=== PATIENT | female | born 1935 | race Caucasian/White ===

== ENCOUNTER 2016-09-26 21:23 | Emergency (ER) | payer OTHER ==
[2016-09-26 21:35] VITALS: TEMP 98.1; BMI 22.8
--- NOTE | 2016-09-26 22:33 | PDOC ---
History of Present Illness - General History Source: Patient, Old Records Exam Limitations: No Limitations - History of Present Illness Initial Comments: The patient is a 81 year old female with a significant past medical history of arthritis, HTN, and osteoporosis, who presents to the emergency department today for further evaluation of high blood pressure today. The patient states that she was at [employer] today and her systolic blood pressure was found to be 200. The patient also reports chronic left shoulder pain and left eye puffiness. The patient denies fever, chills, and sweats. The patient denies headache or vision changes. The patient denies nausea, vomiting, and diarrhea. The patient denies chest pain, cough, and shortness of breath. <Barron Villavicencio - Last Filed: 09/26/16 23:38> <Nicloe Neil - Last Filed: 09/26/16 23:49> - General Chief Complaint: Blood Pressure Problem Stated Complaint: BLOOD PRESSURE PROBLEM Past History <Barron Villavicencio - Last Filed: 09/26/16 23:38> - Past Medical History Thyroid Disease: Yes (Hytpothyroid) Other medical history: Osteoporosis - Psycho/Social/Smoking Cessation Hx Suicidal Ideation: No Smoking History: Former smoker Have you smoked in the past 12 months: No Information on smoking cessation initiated: No Hx Alcohol Use: No Drug/Substance Use Hx: No Substance Use Type: None <Nicole Neil - Last Filed: 09/26/16 23:49> - Past Medical History Allergies/Adverse Reactions: Allergies Allergy/AdvReac Type Severity Reaction Status Date / Time No Known Allergies Allergy Verified 09/26/16 21:32 Home Medications: Ambulatory Orders Aspirin [ASA -] 81 mg PO DAILY 09/26/16 Donepezil HCl [Aricept -] 10 mg PO DAILY 09/26/16 Simvastatin 20 mg PO DAILY 09/26/16 Review of Systems - Review of Systems Able to Perform ROS?: Yes Comments:: GENERAL/CONSTITUTIONAL: No fever or chills. No weakness. HEAD, EYES, EARS, NOSE AND THROAT: (+) Left eye inflammation. No change in vision. No ear pain or discharge. No sore throat. GASTROINTESTINAL: No nausea, vomiting, diarrhea or constipation. GENITOURINARY: No dysuria, frequency, or change in urination. CARDIOVASCULAR: (+) Elevated blood pressure. No chest pain or shortness of breath. RESPIRATORY: No cough, wheezing, or hemoptysis. MUSCULOSKELETAL: (+) Left shoulder pain. No neck or back pain. SKIN: No rash NEUROLOGIC: No headache, vertigo, loss of consciousness, or change in strength/ sensation. ENDOCRINE: No increased thirst. No abnormal weight change. HEMATOLOGIC/LYMPHATIC: No anemia, easy bleeding, or history of blood clots. ALLERGIC/IMMUNOLOGIC: No hives or skin allergy. <Barron Villavicencio - Last Filed: 09/26/16 23:38> *Physical Exam - Vital Signs Last Vital Signs Temp Pulse Resp BP Pulse Ox 98.1 F 85 19 166/69 100 09/26/16 21:32 09/26/16 21:32 09/26/16 21:32 09/26/16 21:32 09/26/16 21:32 - Physical Exam Comments: GENERAL: Awake, alert, and fully oriented, in no acute distress HEAD: No signs of trauma EYES: (+) PERRLA, EOMI, sclera anicteric, conjunctiva clear. Left subconjunctival rupture. ENT: Auricles normal inspection, nares patent, Moist mucosa NECK: Normal ROM, supple, no lymphadenopathy, JVD, or masses LUNGS: Breath sounds equal, clear to auscultation bilaterally. No wheezes, and no crackles HEART: Regular rate and rhythm, normal S1 and S2, no murmurs, rubs or gallops ABDOMEN: Soft, nontender, normoactive bowel sounds. No guarding, no rebound. No masses EXTREMITIES: Normal range of motion, no edema. No clubbing or cyanosis. No cords, erythema, or tenderness NEUROLOGICAL: Normal speech SKIN: Warm, Dry, normal turgor, no rashes or lesions noted. <Barron Villavicencio - Last Filed: 09/26/16 23:38> - Vital Signs Last Vital Signs Temp Pulse Resp BP Pulse Ox 98.1 F 85 19 166/69 100 09/26/16 21:32 09/26/16 21:32 09/26/16 21:32 09/26/16 21:32 09/26/16 21:32 <Nicole Neil - Last Filed: 09/26/16 23:49> ED Treatment Course - LABORATORY CBC & Chemistry Diagram: 09/26/16 22:53 06/08/17 22:50 - RADIOLOGY Radiograph Interpretation: 09/26/16 23:38 EXAM#: TYPE/EXAM: RESULT: [id number] US/TRANSVAGINAL ULTRASOUND US Vaginal bleeding Pelvis ultrasound, transvesical and transvaginal LMP 09/23/2016 The uterus measures 10.5 x 6 and meter in sagittal and AP dimension. Endometrial stripe measures 7.5 mm in thickness which is within normal limits. There are 2 myometrial masses measuring 5.4 x 4 and 1.4 x 1.4 cm consistent with fibroids. The right ovary measures 4.5 x 2.7 cm with a simple cyst/dominant follicle measuring 2.8 x 1.4 cm. Normal vascular flow Left ovary was not visualized. There is no free fluid in the cul-de-sac. Impression: Fibroid uterus, as described above. Normal thickness of the endometrial stripe. Simple cyst/ dominant follicle in the right ovary measuring 2.8 x 1.4 cm. Left ovary was not visualized. Reported By: Devin Nguyen MD 09/26/16 [id number] <Barron Villavicencio - Last Filed: 09/26/16 23:38> - LABORATORY CBC & Chemistry Diagram: 09/26/16 22:53 09/26/16 22:50 <Nicole Neil - Last Filed: 09/26/16 23:49> Medical Decision Making - Medical Decision Making 09/26/16 22:28 81 yo F with h/o HTN arthritis and chronic left shoulder pain here with concerns for left shoulder pain, and noted to have elevated bp at home. they went to [facility] and rechecked the bp and was told it was over 200 systolic. no n/v no cp no sob. did noted to have a left eye subconjuntival hemorrhage since 2 days ago. no change to vision. no other complaints. on exam awake alert. left eye lateral subconjunctival hemorrhage. EOMI, PERRL. lungs clear bilaterally. heart RRR no mr/g/. abd soft NT. left arm FROM. strenth 08/23. plan xray left shoulder cxr labs ekg possible dc home. as bp improved in ed. tylenol for pain control. <Nicole Neil - Last Filed: 09/26/16 23:49> *DC/Admit/Observation/Transfer - Attestations Scribe Attestion: Documentation prepared by Barron Villavicencio, acting as medical manager for Nicole Neil MD. <Barron Villavicencio - Last Filed: 09/26/16 23:38> - Discharge Dispostion Admit: No <Nicole Neil - Last Filed: 09/26/16 23:49> Diagnosis at time of Disposition: Subconjunctival hemorrhage - Discharge Dispostion Disposition: HOME Condition at time of disposition: Good - Referrals Referrals: Ariel Navarro MD [Staff Physician] - - Patient Instructions Printed Discharge Instructions: DI for High Blood Pressure, DI for Subconjunctival Hemorrhage Additional Instructions: you need to see a regular internal medicine doctor you can call dr. Nicole. she can also see a nuerologist for her forgetfulness. call dr Navarro to schedule an appointment see referral list and phone numbers. return for any problems or concerns. for arthritis pain, she can take tylenol 500 mg every 6 hours as needed for pain.
[2016-09-26] MEDS ORDERED: ACETAMINOPHEN 325 MG TABLET (FP) PO ONE (22:34)
[2016-09-26] MEDS ORDERED: ACETAMINOPHEN 325 MG TABLET (FP) ONE (22:46)
[2016-09-26 22:58] LABS: BASOPHIL 0.4 % (0-2.0); EOSINOPHIL 0.7 % (0-4.5); MEAN CELL VOLUME 84.1 fl (80-96); MEAN PLT VOLUME 8.5 fl (7.5-11.1); NEUTROPHILS 68.7 % (42.8-82.8); PLATELET COUNT 215 K/MM3 (134-434); RDW 14.2 % (11.6-15.6); WHITE BLOOD COUNT 10.1 K/mm3 (4.0-10.0)
[2016-09-26 23:24] LABS: ALBUMIN 3.5 g/dl (3.4-5.0); ANION GAP 9 (8-16); BILIRUBIN,TOTAL 0.2 mg/dL (0.2-1.0); CALCIUM 9.1 mg/dL (8.5-10.1); CO2 27 mmol/L (21-32); COCKROFT - GAULT 57.3665; CREATININE 0.7 mg/dL (0.55-1.02); GLUCOSE,RANDOM 120 mg/dL (74-106); SGOT/AST 17 U/L (15-37); SGPT/ALT 20 U/L (12-78); TOT PROT 6.8 g/dl (6.4-8.2)
[2016-09-26 23:25] LABS: ALK PHOS 72 U/L (45-117)
[2016-09-26 23:56] VITALS: BP 159/56; PULSE 86
--- NOTE | 2016-09-28 15:39 | EKG ---
Test Reason : Blood Pressure : / mmHG Vent. Rate : 077 BPM Atrial Rate : 077 BPM P-R Int : 146 ms QRS Dur : 130 ms QT Int : 406 ms P-R-T Axes : 052 061 033 degrees QTc Int : 459 ms NORMAL SINUS RHYTHM WITH SINUS ARRHYTHMIA RIGHT BUNDLE BRANCH BLOCK ABNORMAL ECG NO PREVIOUS ECGS AVAILABLE Confirmed by ANGELA LENZ, DAPHNE ([id number]) on 09/28/2016 3:38:56 PM Referred By: Confirmed By:DAPHNE MILLER MD
== END 2016-09-26 23:56 | disposition home or self-care (01) ==
LOC: JER 21:23
DX: H11.32 Conjunctival hemorrhage, left eye (principal); I10 Essential (primary) hypertension; G89.29 Other chronic pain; E03.9 Hypothyroidism, unspecified; Z87.891 Personal history of nicotine dependence
CPT/HCPCS: 36415; 71010-TC; 80053; 85025; 93005; 93010; 99281-25

== ENCOUNTER 2017-02-10 16:33 | Emergency (ER) | payer OTHER ==
[2017-02-10 16:40] VITALS: BP 148/77; PULSE 96; TEMP 97.6; BMI 21.9
--- NOTE | 2017-02-10 17:29 | PDOC ---
History of Present Illness - General Chief Complaint: Injury Stated Complaint: HEAD INJURY Time Seen by Provider: 02/10/17 17:14 History Source: Patient, Family Exam Limitations: Dementia - History of Present Illness Initial Comments: 02/10/17 17:30 The patient is a 81 year old female with a significant past medical history of arthritis, HTN, and osteoporosis and alzheimer's disease who present to the ed after a mechanical fall on the head after she tripped on a cart in a supermarket. Fall was witnessed by her son who describes no loss of consciousness, and also saw her falling directly backwards and on her back head and left elbow. Complains of a large edema on the occipital part of the head. No hematoma. No focal deficits or memory loss noted. The patient denies fever, chills, and sweats. The patient denies headache or vision changes. The patient denies nausea, vomiting, and diarrhea. The patient denies chest pain, cough, and shortness of breath. 02/10/17 17:35 02/10/17 17:36 02/10/17 21:46 Past History - Past Medical History Allergies/Adverse Reactions: Allergies Allergy/AdvReac Type Severity Reaction Status Date / Time No Known Allergies Allergy Verified 02/10/17 16:40 Home Medications: Ambulatory Orders Aspirin [ASA -] 81 mg PO DAILY 09/26/16 Donepezil HCl [Aricept -] 10 mg PO DAILY 09/26/16 Simvastatin 20 mg PO DAILY 09/26/16 Levothyroxine [Synthroid -] 75 mcg PO DAILY 02/10/17 Lisinopril [Prinivil] 5 mg PO DAILY 02/10/17 HTN: Yes Hypercholesterolemia: Yes Psychiatric Problems: (Alzheimers dis) Thyroid Disease: Yes (Hytpothyroid) - Suicide/Smoking/Psychosocial Hx Smoking History: Never smoked Have you smoked in the past 12 months: No Information on smoking cessation initiated: No Hx Alcohol Use: No Drug/Substance Use Hx: No Substance Use Type: None Review of Systems - Review of Systems Constitutional: No: Symptoms Reported, Chills, Diaphoresis, Fever HEENTM: Yes: See HPI Respiratory: No: Symptoms reported Cardiac (ROS): No: Symptoms Reported ABD/GI: No: Symptoms Reported : No: Symptoms Reported Musculoskeletal: No: Symptoms Reported Neurological: No: Symptoms reported All Other Systems: Reviewed and Negative *Physical Exam - Vital Signs Last Vital Signs Temp Pulse Resp BP Pulse Ox 97.6 F 96 H 18 148/77 99 02/10/17 16:35 02/10/17 16:35 02/10/17 16:35 02/10/17 16:35 02/10/17 16:35 - Physical Exam General Appearance: Yes: Nourished, Appropriately Dressed. No: Apparent Distress HEENT: positive: EOMI, SAPPHIRE, Normal ENT Inspection, Pharynx Normal Neck: positive: Trachea midline, Normal Thyroid. negative: Tender Respiratory/Chest: positive: Lungs Clear, Normal Breath Sounds. negative: Chest Tender Cardiovascular: positive: Regular Rhythm, Regular Rate, S1, S2 Vascular Pulses: Dorsalis-Pedis (R): 2+, Doralis-Pedis (L): 2+ Gastrointestinal/Abdominal: positive: Normal Bowel Sounds, Flat, Soft. negative : Tender Neurologic: positive: Alert, Normal Mood/Affect, Motor Strength 5/5. negative: Facial Droop ED Treatment Course - LABORATORY CBC & Chemistry Diagram: 02/10/17 18:10 02/10/17 18:10 Medical Decision Making - Medical Decision Making 02/10/17 17:42 81F with pmh of htn, Alzheimer's and osteoporosis presents after mechanical fall no loc. cbc cmp fingerstick pending Cxr pending Head ct pending. All labs and imaging negative for acute processes. 02/10/17 21:23 Patient able to ambulate without assistance. Patient d/c with update to son and copy of head CT for eventual follow up outpatient as recommended by neurologist. 02/10/17 21:28 *DC/Admit/Observation/Transfer Diagnosis at time of Disposition: Head injury due to trauma - Discharge Dispostion Disposition: HOME Condition at time of disposition: Improved Admit: No - Referrals Referrals: Femi Sierra MD [Primary Care Provider] - Ariel Navarro MD [Staff Physician] - - Patient Instructions Printed Discharge Instructions: DI for Closed Head Injury Additional Instructions: Please come back to the ED if you experience any new symptoms like headaches, loss of consciousness, memory loss, lethargy, difficulty walking or seizures. Follow up with your Neurologist or Dr. Navarro for further investigation with MRI. Print Language: NEPALESE
[2017-02-10 18:17] LABS: BASOPHIL 0.5 % (0-2.0); EOSINOPHIL 2.4 % (0-4.5); MCH 27.7 pg (25.7-33.7); MCHC 33.1 g/dl (32.0-36.0); MEAN CELL VOLUME 83.6 fl (80-96); MEAN PLT VOLUME 9.1 fl (7.5-11.1); NEUTROPHILS 65.8 % (42.8-82.8); PLATELET COUNT 210 K/MM3 (134-434); RDW 13.9 % (11.6-15.6); WHITE BLOOD COUNT 8.9 K/mm3 (4.0-10.0)
[2017-02-10 18:20] LABS: URINE APPEARANCE SLCLOUDY; URINE BILIRUBIN NEGATIVE (NEGATIVE); URINE BLOOD NEGATIVE (NEGATIVE); URINE COLOR DKYELLOW; URINE GLUCOSE (UA) NEGATIVE (NEGATIVE); URINE KETONE TRACE (NEGATIVE); URINE NITRITE NEGATIVE (NEGATIVE); URINE PROTEIN NEGATIVE (NEGATIVE); URINE UROBILINOGEN NEGATIVE mg/dL (0.2-1.0)
--- NOTE | 2017-02-10 18:48 | PDOC ---
Attending Attestation - Resident Resident Name: Baldemar Albarado - ED Attending Attestation I have performed the following: I have examined & evaluated the patient, The case was reviewed & discussed with the resident, I agree w/resident's findings & plan, Exceptions are as noted - HPI HPI: 02/10/17 18:43 81 F with h/o HTN, HLD, alzheimer's presenting to ER s/p fall. Pt was putting groceries away with her son when she tripped over the shopping cart, falling backwards and hitting her head on the ground. Pt denies LOC. Son witnessed the fall and said she fell directly backwards. She braced her fall with her left elbow, which is also bothering her. Pt was able to get up and ambulate immediately after falling. Denies [place]/N/V. Endorses mild neck pain. Denies weakness/numbness/tingling in any extremity. Denies CP/SOB. Denies hip or leg pain. - Physicial Exam PE: 02/10/17 18:47 "GENERAL: Awake, alert, and fully oriented, in no acute distress HEAD: hematoma to occiput, no abrasion/laceration EYES: PERRLA, EOMI, sclera anicteric, conjunctiva clear ENT: Auricles normal inspection, hearing grossly normal, nares patent, oropharynx clear without exudates. Moist mucosa NECK: mild paraspinal TTP, no stepoffs, Normal ROM, supple, no lymphadenopathy, JVD, or masses LUNGS: Breath sounds equal, clear to auscultation bilaterally. No wheezes, and no crackles HEART: Regular rate and rhythm, normal S1 and S2, no murmurs, rubs or gallops ABDOMEN: Soft, nontender, normoactive bowel sounds. No guarding, no rebound. No masses EXTREMITIES: L elbow with slight TTP over olecranon, no effusion, no abrasion/ lacerations, RUE wnl, BLE unremarkable NEUROLOGICAL: Cranial nerves II through XII intact. 5/5 strength and sensation in all extremities, Normal speech, normal gait SKIN: Warm, Dry, normal turgor, no rashes or lesions noted. " - Medical Decision Making 02/10/17 18:48 81 F with mechanical fall. Presenting with hematoma to occiput and L elbow pain. - CTH/Cspine - XR L elbow
[2017-02-10] MEDS ORDERED: ACETAMINOPHEN 500 MG TABLET (FP) PO ONE (18:49)
[2017-02-10 18:56] LABS: ALK PHOS 60 U/L (45-117); ANION GAP 7 (8-16); BILIRUBIN,TOTAL 0.6 mg/dL (0.2-1.0); CALCIUM 9.1 mg/dL (8.5-10.1); CO2 28 mmol/L (21-32); CREATININE 0.7 mg/dL (0.55-1.02); GLUCOSE,RANDOM 101 mg/dL (74-106); SGOT/AST 15 U/L (15-37); SGPT/ALT 21 U/L (12-78); TOT PROT 7.8 g/dl (6.4-8.2)
[2017-02-10] MEDS ORDERED: ACETAMINOPHEN 325 MG TABLET (FP) ONE (19:37)
[2017-02-10 22:34] LABS: URINE LEUK ESTERASE TRACE (NEGATIVE)
== END 2017-02-10 22:05 | disposition home or self-care (01) ==
LOC: JER 16:33
DX: S09.8XXA Other specified injuries of head, initial encounter (principal); W18.09XA Striking against other object with subsequent fall, initial encounter; Y93.89 Activity, other specified; Y92.512 Supermarket, store or market as the place of occurrence of the external cause; Y99.8 Other external cause status; I10 Essential (primary) hypertension; E03.9 Hypothyroidism, unspecified; M12.9 Arthropathy, unspecified; G30.9 Alzheimer's disease, unspecified; F02.80 Dementia in other diseases classified elsewhere, unspecified severity, without behavioral disturbance, psychotic disturbance, mood disturbance, and anxiety; M81.8 Other osteoporosis without current pathological fracture
CPT/HCPCS: 36415; 70450-TC; 71020-TC; 72125-TC; 73070-TC-LT; 80053; 81003; 81015; 85025; 99282-25

== ENCOUNTER 2017-11-09 13:30 | Emergency (ER) | payer OTHER ==
[2017-11-09 13:38] VITALS: BMI 23.6
[2017-11-09] MEDS ORDERED: FAMOTIDINE 20 MG/50 ML IVPB 20 MG/50 ML MG IVPB ONE ×2 (14:30→14:40)
[2017-11-09] MEDS ORDERED: MAG HYDROX/AL HYDROX/SIMETH -MYLANTA- ORAL SUSPENSION PO ONE (14:30)
[2017-11-09] MEDS ORDERED: ACETAMINOPHEN 1000 MG/100 ML VIAL (NON FORMULARY) IVPB ONE (14:30)
[2017-11-09] MEDS ORDERED: SODIUM CHLORIDE 1,000 ML IV STA (14:30)
[2017-11-09] MEDS ORDERED: ACETAMINOPHEN INJECTION 100 ML IVPB ONE (14:40)
[2017-11-09] MEDS ORDERED: MAG HYDROX/AL HYDROX/SIMETH 30 ML UNIT-DOSE CUP ONE (14:40)
--- NOTE | 2017-11-09 14:40 | PDOC ---
Attending Attestation - Resident Resident Name: Antonella Limon - ED Attending Attestation I have performed the following: I have examined & evaluated the patient, The case was reviewed & discussed with the resident, I agree w/resident's findings & plan, Exceptions are as noted - HPI HPI: 11/09/17 14:35 82 year old female c/ hx of Alzheimer's dementia, HTN, HLD, brought in by pt's son for abdominal pain. The patient had barbeque yesterday. Was otherwise well. However, two hours prior to arrival, the patient started to develop upper abdominal, intermittent pain. The pt's son reports that the patient typically does not complain. States that the patient requested to go to the hospital. Denies nausea, vomiting, fever, diarrhea, chest pain. - Physicial Exam PE: 11/09/17 14:38 GENERAL: Awake, alert,, in no acute distress HEAD: No signs of trauma EYES: EOMI, sclera anicteric, conjunctiva clear ENT: Auricles normal inspection, hearing grossly normal, nares patent NECK: Normal ROM, supple ABDOMEN: Soft, TTP epigastric, LUQ. negative askew sign. No guarding, no rebound. No masses EXTREMITIES: Normal range of motion, no edema. No clubbing or cyanosis. No cords, erythema, or tenderness NEUROLOGICAL: Cranial nerves II through XII grossly intact. Normal speech, normal gait SKIN: Warm, Dry, normal turgor, no rashes or lesions noted. - Medical Decision Making 11/09/17 14:38 Vital Signs Temp Pulse Resp BP Pulse Ox 98.0 F 89 16 145/72 100 11/09/17 13:36 11/09/17 13:36 11/09/17 13:36 11/09/17 13:36 11/09/17 13:36 The patient is nontoxic appearing. Differential includes gastritis, gastroenteritis, pancreatitis, biliary colic. I agree with residents plan for labs, RUQ ultrasound, UA. GERD medications. If workup is negative and patient feels better from pain medication, I suspect that this is gastritis and patient can be managed as an outpatient. 11/09/17 15:51 Chest xray reviewed. No acute findings. 11/09/17 15:58 CBC, BMP 11/09/17 15:11 11/09/17 15:11 CMP Sodium 142 mmol/L (136-145) 11/09/17 15:11 Potassium 4.3 mmol/L (3.5-5.1) 11/09/17 15:11 Chloride 107 mmol/L (98-107) 11/09/17 15:11 Carbon Dioxide 28 mmol/L (21-32) 11/09/17 15:11 Anion Gap 7 (8-16) L 11/09/17 15:11 BUN 15 mg/dL (7-18) 11/09/17 15:11 Creatinine 0.8 mg/dL (0.55-1.02) 11/09/17 15:11 Creat Clearance w eGFR > 60 (>60) 11/09/17 15:11 Random Glucose 73 mg/dL (74-106) L 11/09/17 15:11 Lactic Acid 1.2 mmol/L (0.0-2.0) 11/09/17 15:11 Calcium 9.1 mg/dL (8.5-10.1) 11/09/17 15:11 Total Bilirubin 0.6 mg/dL (0.2-1.0) 11/09/17 15:11 AST 19 U/L (15-37) 11/09/17 15:11 ALT 25 U/L (12-78) 11/09/17 15:11 Alkaline Phosphatase 76 U/L (45-117) 11/09/17 15:11 Troponin I < 0.02 ng/ml (0.00-0.05) 11/09/17 15:11 Total Protein 7.3 g/dl (6.4-8.2) 11/09/17 15:11 Albumin 3.7 g/dl (3.4-5.0) 11/09/17 15:11 Lipase 220 U/L (73-393) 11/09/17 15:11 Urine Test Results Urine Color Yellow 11/09/17 14:45 Urine Appearance Clear 11/09/17 14:45 Urine pH 5.0 (5.0-8.0) 11/09/17 14:45 Ur Specific [place] 1.020 (1.001-1.035) 11/09/17 14:45 Urine Protein Negative (NEGATIVE) 11/09/17 14:45 Urine Glucose (UA) Negative (NEGATIVE) 11/09/17 14:45 Urine Ketones Negative (NEGATIVE) 11/09/17 14:45 Urine Blood Negative (NEGATIVE) 11/09/17 14:45 Urine Nitrite Negative (NEGATIVE) 11/09/17 14:45 Urine Bilirubin Negative (<2.0 mg/dL) 11/09/17 14:45 Ur Leukocyte Esterase Negative (NEGATIVE) D 11/09/17 14:45 Labs reviewed. No acute findings. Ultrasound pending. If the ultrasound is equivocal and the patient continues to have pain, I would recommend that the patient receive a CT scan of the abdomen and pelvis. Heart Score/ECG Review #1 ECG reviewed & interpreted by me at: 15:55 11/09/17 15:59 NSR 69, RBBB, no std/nirali, QTC 447 msec
--- NOTE | 2017-11-09 14:52 | PDOC ---
History of Present Illness - General Chief Complaint: Pain Stated Complaint: ABD PAIN Time Seen by Provider: 11/09/17 14:02 History Source: Patient, Family (Son) - History of Present Illness Initial Comments: 82yo F with PMH of Alzheimers, HTN, HLD complaining of abdominal pain x 2 hours. Denies nausea, vomiting, constipation, or diarrhea. Patient recently finished a ten-day course of antibiotics for a vaginal infection. Last bowel movement was earlier today. Patient reports a normal appetite. No history of GI bleed. Denies fever, chills, chest pain, or shortness of breath. History of C- section. 11/09/17 14:50 Past History - Past Medical History Allergies/Adverse Reactions: Allergies Allergy/AdvReac Type Severity Reaction Status Date / Time No Known Allergies Allergy Verified 11/09/17 13:39 Home Medications: Ambulatory Orders Aspirin [ASA -] 81 mg PO DAILY 09/26/16 Donepezil HCl [Aricept -] 10 mg PO DAILY 09/26/16 Simvastatin 20 mg PO DAILY 09/26/16 Levothyroxine [Synthroid -] 75 mcg PO DAILY 02/10/17 Lisinopril [Prinivil] 5 mg PO DAILY 02/10/17 Pantoprazole Sodium [Protonix] 40 mg PO DAILY #10 tablet. 11/09/17 COPD: No HTN: Yes Hypercholesterolemia: Yes Psychiatric Problems: (Alzheimers dis) Thyroid Disease: Yes (Hytpothyroid) - Suicide/Smoking/Psychosocial Hx Smoking History: Never smoked Have you smoked in the past 12 months: No Information on smoking cessation initiated: No Hx Alcohol Use: No Drug/Substance Use Hx: No Substance Use Type: None Review of Systems - Review of Systems Comments:: Constitutional: no fever, no chills HEENT: no throat pain, no dysphagia Cardiovascular: no chest pain, no palpitations Respiratory: no cough, no shortness of breath Gastrointestinal: +abdominal pain, no nausea, no vomiting, no diarrhea, no constipation Genitourinary: no dysuria, no frequency Musculoskeletal: no myalgia, no arthralgia Skin: no rash, no itching Neurologic: no headache, no dizziness *Physical Exam - Vital Signs Last Vital Signs Temp Pulse Resp BP Pulse Ox 98.0 F 89 16 145/72 100 11/09/17 13:36 11/09/17 13:36 11/09/17 13:36 11/09/17 13:36 11/09/17 13:36 - Physical Exam Comments: General: Awake, alert, and fully oriented, in no acute distress Head: no signs of trauma Eyes: EOMI, sclera anicteric ENT: moist mucus membranes, Neck: Normal ROM, supple, no lymphadenopathy Lungs: Lungs clear, Normal breath sounds Cardio: Regular rhythm, S1 and S2 present, no murmurs, rubs, or gallops Abdomen: +tender to palpation in epigastric area, soft, normal bowel sounds. No guarding, no rebound, no masses Extremities: Normal range of motion, No clubbing or cyanosis SKIN: Warm, Dry, normal turgor, no rashes or lesions noted Neurologic: Cranial nerves II through XII grossly intact. Normal speech ED Treatment Course - LABORATORY CBC & Chemistry Diagram: 11/09/17 15:11 11/09/17 15:11 - RADIOLOGY Radiology Studies Ordered: Category Date Time Status CXRPORT [CHEST X-RAY PORTABLE*] [RAD] Stat Radiology 11/09/17 14:26 Ordered Medical Decision Making - Medical Decision Making 82yo F with PMH of Alzheimers, HTN, HLD complaining of abdominal pain x 2 hours. Patient denies diarrhea. I do not think this is a gastroenteritis, colitis, or diverticulitis. Patient is not vomiting and is afebrile. Will get screening labs for hepatitis, cholecystitis, or pancreatitis. She does not appear obstructed as she endorses normal BMs and no vomiting. Patient's abdomen is not peritoneal. She denies hematuria or dysuria. Will check an UA. Vital Signs Temp Pulse Resp BP Pulse Ox 98.0 F 89 16 145/72 100 11/09/17 13:36 11/09/17 13:36 11/09/17 13:36 11/09/17 13:36 11/09/17 13:36 11/09/17 15:29 WBC 11.2, Tpn negative, UA negative. Lactate negative. Awaiting US report. 11/09/17 16:[address] Martínez- "IMPRESSION: 1. Cholelithiasis 2. Nonvisualization of the tail of the pancreas due to overlying bowel gas. Otherwise unremarkable right upper quadrant abdominal sonogram." Patient reporting no abdominal pain, no nausea or vomiting. Requesting something to eat. Glucose noted to be 73, patient given juan j crackers which she consumed. Will discharge home with protonix. Patient and son amenable to plan. Laboratory Tests 11/09/17 11/09/17 11/09/17 14:45 15:11 15:11 WBC 11.2 H RBC 4.29 Hgb 12.0 Hct 36.3 MCV 84.7 MCH 28.0 MCHC 33.1 RDW 14.1 Plt Count 209 MPV 9.4 Absolute Neuts (auto) 7.7 Neutrophils % 68.6 Lymphocytes % 21.1 Monocytes % 8.6 Eosinophils % 1.0 Basophils % 0.7 Nucleated RBC % 0 Sodium 142 Potassium 4.3 Chloride 107 Carbon Dioxide 28 Anion Gap 7 L BUN 15 Creatinine 0.8 Creat Clearance w eGFR > 60 Random Glucose 73 L Lactic Acid Calcium 9.1 Total Bilirubin 0.6 AST 19 ALT 25 Alkaline Phosphatase 76 Troponin I < 0.02 Total Protein 7.3 Albumin 3.7 Lipase 220 Urine Color Yellow Urine Appearance Clear Urine pH 5.0 Ur Specific [place] 1.020 Urine Protein Negative Urine Glucose (UA) Negative Urine Ketones Negative Urine Blood Negative Urine Nitrite Negative Urine Bilirubin Negative Urine Urobilinogen 0.2 Ur Leukocyte Esterase Negative D 11/09/17 15:11 WBC RBC Hgb Hct MCV MCH MCHC RDW Plt Count MPV Absolute Neuts (auto) Neutrophils % Lymphocytes % Monocytes % Eosinophils % Basophils % Nucleated RBC % Sodium Potassium Chloride Carbon Dioxide Anion Gap BUN Creatinine Creat Clearance w eGFR Random Glucose Lactic Acid 1.2 Calcium Total Bilirubin AST ALT Alkaline Phosphatase Troponin I Total Protein Albumin Lipase Urine Color Urine Appearance Urine pH Ur Specific [place] Urine Protein Urine Glucose (UA) Urine Ketones Urine Blood Urine Nitrite Urine Bilirubin Urine Urobilinogen Ur Leukocyte Esterase 11/09/17 17:36 *DC/Admit/Observation/Transfer Diagnosis at time of Disposition: Abdominal pain Qualifiers: Abdominal location: epigastric Qualified Code(s): R10.13 - Epigastric pain - Discharge Dispostion Disposition: HOME Condition at time of disposition: Improved - Prescriptions Prescriptions: Pantoprazole Sodium [Protonix] 40 mg PO DAILY #10 tablet.dr - Referrals Referrals: Femi Sierra MD [Primary Care Provider] - - Patient Instructions Additional Instructions: You were seen in the Emergency Department today due abdominal pain. Blood tests and Ultrasound did not find a serious reason for your abdominal pain. INSTRUCTIONS (what you need to do): Follow up with your primary care doctor, Dr. Sierra, in the next 2-3 days. At this time, we have not found a serious cause of your abdominal pain. It is important that you carefully watch for changes in the abdominal pain that might suggest a serious condition. See your doctor or return to the emergency department immediately if your condition gets worse. Call your doctor or return to the emergency department if you are feeling worse or if: -You are unable to walk easily or are walking in a bent-over position. -Stepping or jumping results in severe pain. -The abdomen is hard and painful when you press on it. -There is severe abdominal pain when coughing. -Worsening vomiting. Vomiting is bloody or green or looks like chocolate or coffee. -The belly looks very full or big. -You are experiencing severe pain every 3 to 20 minutes. -Stool (poop) is bloody or black. -You are drowsy, weak, fussy, or pale - Post Discharge Activity
[2017-11-09 15:41] LABS: ALBUMIN 3.7 g/dl (3.4-5.0); ANION GAP 7 (8-16); BILIRUBIN,TOTAL 0.6 mg/dL (0.2-1.0); BLOOD UREA NITROGEN 15 mg/dL (7-18); CALCIUM 9.1 mg/dL (8.5-10.1); CHLORIDE 107 mmol/L (98-107); CO2 28 mmol/L (21-32); CREATININE 0.8 mg/dL (0.55-1.02); GLUCOSE,RANDOM 73 mg/dL (74-106); POTASSIUM 4.3 mmol/L (3.5-5.1); SGOT/AST 19 U/L (15-37); SGPT/ALT 25 U/L (12-78); SODIUM 142 mmol/L (136-145); TOT PROT 7.3 g/dl (6.4-8.2)
[2017-11-09 15:44] LABS: ALK PHOS 76 U/L (45-117); LIPASE 220 U/L (73-393)
[2017-11-09 15:45] LABS: BASO % 0.7 % (0-2.0); HEMATOCRIT 36.3 % (32.4-45.2); LYMPH % 21.1 % (8-40); MCHC 33.1 g/dl (32.0-36.0); MEAN CELL VOLUME 84.7 fl (80-96); MEAN PLT VOLUME 9.4 fl (7.5-11.1); MONO % 8.6 % (3.8-10.2); NEUT % 68.6 % (42.8-82.8); PLATELET COUNT 209 K/MM3 (134-434); RBC 4.29 M/mm3 (3.60-5.2); RDW 14.1 % (11.6-15.6); WHITE BLOOD COUNT 11.2 K/mm3 (4.0-10.0)
[2017-11-09 15:50] LABS: URINE APPEARANCE CLEAR; URINE BILIRUBIN NEGATIVE (<2.0 mg/dL); URINE COLOR YELLOW; URINE GLUCOSE (UA) NEGATIVE (NEGATIVE); URINE KETONE NEGATIVE (NEGATIVE); URINE PROTEIN NEGATIVE (NEGATIVE)
[2017-11-09 15:51] LABS: URINE LEUK ESTERASE NEGATIVE (NEGATIVE); URINE NITRITE NEGATIVE (NEGATIVE); URINE UROBILINOGEN 0.2 mg/dL (0.2-1.0)
--- NOTE | 2017-11-09 17:44 | PDOC ---
*Physical Exam - Vital Signs Last Vital Signs Temp Pulse Resp BP Pulse Ox 98.0 F 89 16 145/72 100 11/09/17 13:36 11/09/17 13:36 11/09/17 13:36 11/09/17 13:36 11/09/17 13:36 ED Treatment Course - LABORATORY CBC & Chemistry Diagram: 11/09/17 15:11 11/09/17 15:11 - ADDITIONAL ORDERS Additional order review: Laboratory Results 11/09/17 11/09/17 11/09/17 15:11 15:11 14:45 Sodium 142 Potassium 4.3 Chloride 107 Carbon Dioxide 28 Anion Gap 7 L BUN 15 Creatinine 0.8 Creat Clearance w eGFR > 60 Random Glucose 73 L Lactic Acid 1.2 Calcium 9.1 Total Bilirubin 0.6 AST 19 ALT 25 Alkaline Phosphatase 76 Troponin I < 0.02 Total Protein 7.3 Albumin 3.7 Lipase 220 Urine Color Yellow Urine Appearance Clear Urine pH 5.0 Ur Specific [place] 1.020 Urine Protein Negative Urine Glucose (UA) Negative Urine Ketones Negative Urine Blood Negative Urine Nitrite Negative Urine Bilirubin Negative Urine Urobilinogen 0.2 Ur Leukocyte Esterase Negative D 11/09/17 15:11 RBC 4.29 MCV 84.7 MCHC 33.1 RDW 14.1 MPV 9.4 Neutrophils % 68.6 Lymphocytes % 21.1 Monocytes % 8.6 Eosinophils % 1.0 Basophils % 0.7 - Medications Given in the ED: ED Medications Discontinued Medications Generic Name Dose Route Start Last Admin Trade Name Joaoq PRN Reason Stop Dose Admin Acetaminophen 1,000 mg 11/09/17 14:30 11/09/17 15:00 Ofirmev Injection - IVPB 11/09/17 14:31 1,000 mg ONCE ONE Administration Al Hydroxide/Mg Hydroxide 30 ml 11/09/17 14:30 11/09/17 14:45 Mylanta Suspension - PO 11/09/17 14:31 30 ml ONCE ONE Administration Famotidine/Sodium Chloride 20 mg in 50 mls @ 100 mls/hr 11/09/17 14:30 15:00 Pepcid 20 Mg Premixed Ivpb - IVPB 11/09/17 14:59 100 mls/hr ONCE ONE Administration Sodium Chloride 1,000 mls @ 1,000 mls/hr 11/09/17 14:30 11/09/17 15:00 Normal Saline - IV 11/09/17 15:29 1,000 mls/hr ASDIR STA Administration Medical Decision Making - Medical Decision Making 11/09/17 17:43 Patient is requesting something to drink and ate and she was given juan j crackers and water. She states that her pain has resolved Ultrasound showed multiple mobile gallstones, but no inflammation, sludge apparently cholecystic fluid. Impression gastritis. Plan follow-up with Dr. 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
[2017-11-09 18:11] VITALS: BP 140/63; PULSE 71; TEMP 97.7
--- NOTE | 2017-11-10 11:31 | EKG ---
Test Reason : Blood Pressure : / mmHG Vent. Rate : 069 BPM Atrial Rate : 069 BPM P-R Int : 152 ms QRS Dur : 130 ms QT Int : 418 ms P-R-T Axes : 055 046 028 degrees QTc Int : 447 ms NORMAL SINUS RHYTHM RIGHT BUNDLE BRANCH BLOCK ABNORMAL ECG WHEN COMPARED WITH ECG OF 26-SEP-2016 22:17, NO SIGNIFICANT CHANGE WAS FOUND Confirmed by LINDEN HUA MD ([id number]) on 11/10/2017 11:31:13 AM Referred By: Confirmed By:LINDEN HUA MD
== END 2017-11-09 18:11 | disposition home or self-care (01) ==
LOC: JER 13:30
PROC: 3E033GC Introduction of Other Therapeutic Substance into Peripheral Vein, Percutaneous Approach (ICD-10-PCS; principal; 2017-11-09)
PROC: 3E033NZ Introduction of Analgesics, Hypnotics, Sedatives into Peripheral Vein, Percutaneous Approach (ICD-10-PCS; 2017-11-09)
DX: K80.20 Calculus of gallbladder without cholecystitis without obstruction (principal); R10.10 Upper abdominal pain, unspecified; I10 Essential (primary) hypertension; E78.00 Pure hypercholesterolemia, unspecified; E78.5 Hyperlipidemia, unspecified; E03.9 Hypothyroidism, unspecified; G30.9 Alzheimer's disease, unspecified; F02.80 Dementia in other diseases classified elsewhere, unspecified severity, without behavioral disturbance, psychotic disturbance, mood disturbance, and anxiety
CPT/HCPCS: 36415; 71045-TC-FY; 76705-TC; 80053; 81003; 83605; 83690; 84484; 85025; 87040; 87086; 93005; 93010; 96365; 96375; 99283-25; J0131; J7030

== ENCOUNTER 2018-06-13 13:14 | Observation (INO) | payer OTHER ==
[2018-06-13] MEDS ORDERED: ASPIRIN 81 MG CHEWABLE TABLETS PO ONE (13:48)
--- NOTE | 2018-06-13 14:16 | PDOC ---
History of Present Illness - General Chief Complaint: Chest Pain Stated Complaint: CHEST PAIN Time Seen by Provider: 06/13/18 13:35 History Source: Patient, Family Exam Limitations: Dementia - History of Present Illness Initial Comments: 06/13/18 14:11 Patient is an 83F with history of dementia, htn, hld here today complaining of chest pain. Her son reports that she had an episode of sudden onset chest pain at 12:30 today with associated leg weakness. Patient states that she has no pain or leg weakness at this time. History is limited by patient's memory loss. Son states that she did not complain of shortness of breath, fever, abdominal pain, headache. Son denies vomiting, focal weakness. No history of cardiac workups in past. 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 Patient's son reports this is her baseline mental status. Past History - Past Medical History Allergies/Adverse Reactions: Allergies Allergy/AdvReac Type Severity Reaction Status Date / Time No Known Allergies Allergy Verified 06/13/18 13:21 Home Medications: Ambulatory Orders Aspirin [ASA -] 81 mg PO DAILY 09/26/16 Donepezil HCl [Aricept -] 10 mg PO DAILY 09/26/16 Simvastatin 20 mg PO DAILY 09/26/16 Levothyroxine [Synthroid -] 75 mcg PO DAILY 02/10/17 Lisinopril [Prinivil] 5 mg PO DAILY 02/10/17 Pantoprazole Sodium [Protonix] 40 mg PO DAILY #10 tablet. 11/09/17 COPD: No DVT: No Dementia: Yes HTN: Yes Hypercholesterolemia: Yes Psychiatric Problems: (Alzheimers dis) Thyroid Disease: Yes (Hytpothyroid) - Suicide/Smoking/Psychosocial Hx Smoking History: Never smoked Have you smoked in the past 12 months: No Information on smoking cessation initiated: No Hx Alcohol Use: No Drug/Substance Use Hx: No Substance Use Type: None Review of Systems - Review of Systems Able to Perform ROS?: No (2/2 dementia) *Physical Exam - Vital Signs Last Vital Signs Temp Pulse Resp BP Pulse Ox 98.4 F 82 18 158/55 L 99 06/13/18 13:21 06/13/18 13:21 06/13/18 13:21 06/13/18 13:21 06/13/18 13:21 - Physical Exam Comments: 06/13/18 14:13 GENERAL: Awake, alert, oriented to self/place, not year, in no acute distress HEAD: No signs of trauma, normocephalic, atraumatic EYES: PERRLA, EOMI, sclera anicteric, conjunctiva clear ENT: Auricles normal inspection, hearing grossly normal, nares patent, oropharynx clear without exudates. Moist mucosa NECK: Normal ROM, supple, no lymphadenopathy, JVD, or masses LUNGS: No distress, speaks full sentences, clear to auscultation bilaterally HEART: Regular rate and rhythm, normal S1 and S2, no murmurs, rubs or gallops, peripheral pulses normal and equal bilaterally. ABDOMEN: Soft, nontender, normoactive bowel sounds. No guarding, no rebound. No masses EXTREMITIES: Normal inspection, Normal range of motion, no edema. No clubbing or cyanosis. NEUROLOGICAL: Cranial nerves II through XII grossly intact. Normal speech, normal gait, no focal sensorimotor deficits SKIN: Warm, Dry, normal turgor, no rashes or lesions noted. Moderate Sedation - Procedure Monitoring Vital Signs: Procedure Monitoring Vital Signs Temperature 98.4 F 06/13/18 13:21 Pulse Rate 82 06/13/18 13:21 Respiratory Rate 18 06/13/18 13:21 Blood Pressure 158/55 L 06/13/18 13:21 O2 Sat by Pulse Oximetry (%) 99 06/13/18 13:21 ED Treatment Course - LABORATORY CBC & Chemistry Diagram: 06/13/18 15:00 06/13/18 15:00 - RADIOLOGY Radiology Studies Ordered: Category Date Time Status CHEST X-RAY PORTABLE* [RAD] Stat Radiology 06/13/18 13:48 Ordered Medical Decision Making - Medical Decision Making 06/13/18 14:14 Patient is 83F with history of dementia, htn, hld here today with chest pain. Vitals normal and stable. EKG shows NSR with RBBB. No st elevations/ depressions. Normal axis. Normal intervals. No significant t wave abnormalities. 06/13/18 16:01 CBC, CMP reassuring. Trop normal. CXR clear. D/W Dr Rodriguez, accepted to tele obs. *DC/Admit/Observation/Transfer Diagnosis at time of Disposition: Chest pain - Discharge Dispostion Condition at time of disposition: Stable Decision to Admit order: Yes - Referrals - Patient Instructions - Post Discharge Activity
[2018-06-13] MEDS ORDERED: ASPIRIN 81 MG CHEWABLE TABLETS ONE (14:40)
--- NOTE | 2018-06-13 15:03 | PDOC ---
Attending Attestation - Resident Resident Name: CherylDexter - ED Attending Attestation I have performed the following: I have examined & evaluated the patient, The case was reviewed & discussed with the resident, I agree w/resident's findings & plan, Exceptions are as noted - HPI HPI: 06/13/18 14:58 The patient is a 83 year old female with a significant past medical history of Alzheimer's, hypertension, hyperlipidemia, and hypothyroidism who presents to the emergency department with chest pain since earlier today. The patient reports that she was at home when she felt a sudden onset of her chest pain at about 23:30 pm. She states that her chest pain was midsternal. The patient reports some associated leg weakness. The patient denies any chest pain or leg weakness at time of exam. She denies any fever, chills, nausea, vomiting, diarrhea, constipation or urinary symptoms. She denies any shortness of breath, headache dizziness, numbness, or tingling sensation. She denies any other complaints. - Physicial Exam PE: 06/13/18 14:59 agree with resident exam - Medical Decision Making 06/13/18 14:01 83yo F with MMP including HTN, HL presents to the ED with intermittent chest pain and leg weakness. Vitals unremarkable, exam non focal, no LE weakness. EKG unchanged compared to prior. Plan to admit to tele obs due to elevated HS 06/13/18 14:43 Trop neg. Labs unremarkable. pt stable, denies CP while in ED. Admitted to Dr. Dc for further mgmt Case discussed in detail with admitting physician including history, physical exam and ancillary studies. Admitting physician has assumed care for the patient, will follow all pending diagnostics and will complete the evaluation and treatment. Heart Score/ECG Review #1 06/13/18 14:59 Twelve-lead EKG was performed and reviewed by me. Normal sinus rhythm, rate 81. Normal axis and no ST elevations. +RBBB. No changes compared to last EKG in our EMR.
[2018-06-13 15:20] LABS: BASO % 0.6 % (0-2.0); EOS % 1.1 % (0-4.5); HEMATOCRIT 32.9 % (32.4-45.2); HEMOGLOBIN 11.4 GM/dL (10.7-15.3); LYMPH % 31.8 % (8-40); MCH 29.5 pg (25.7-33.7); MCHC 34.7 g/dl (32.0-36.0); MEAN CELL VOLUME 85.2 fl (80-96); MEAN PLT VOLUME 8.8 fl (7.5-11.1); MONO % 8.2 % (3.8-10.2); NEUT % 58.3 % (42.8-82.8); PLATELET COUNT 196 K/MM3 (134-434); RBC 3.86 M/mm3 (3.60-5.2); RDW 13.9 % (11.6-15.6); WHITE BLOOD COUNT 7.2 K/mm3 (4.0-10.0)
[2018-06-13 15:44] LABS: INR 1.03 (0.83-1.09); PROTHROMBIN TIME (PATIENT) 12.2 SEC (9.7-13.0)
[2018-06-13 15:51] LABS: ALBUMIN 3.6 g/dl (3.4-5.0); ALK PHOS 64 U/L (45-117); ANION GAP 3 MMOL/L (8-16); BILIRUBIN,TOTAL 0.4 mg/dL (0.2-1); BLOOD UREA NITROGEN 15 mg/dL (7-18); CHLORIDE 105 mmol/L (98-107); CO2 29 mmol/L (21-32); CREATININE 0.8 mg/dL (0.55-1.3); GLUCOSE,RANDOM 87 mg/dL (74-106); MAGNESIUM 2.2 mg/dL (1.8-2.4); POTASSIUM 4.9 mmol/L (3.5-5.1); SGOT/AST 19 U/L (15-37); SGPT/ALT 20 U/L (13-61); SODIUM 137 mmol/L (136-145); TOT PROT 6.9 g/dl (6.4-8.2)
[2018-06-13 19:00] VITALS: BMI 24.5
[2018-06-13] MEDS ORDERED: HALOPERIDOL LACTATE 5 MG/ML IM ONE (21:45)
[2018-06-13] MEDS: ATORVASTATIN CA 10 MG TABLET (FP) PO SCH (22:00)
[2018-06-14] MEDS: LEVOTHYROXINE NA 75 MCG TABLET (FP) PO SCH (06:15)
[2018-06-14] MEDS ORDERED: PT OWN MED DRAWER 7, Y5N ONE ×2 (06:56→09:37)
[2018-06-14 08:32] LABS: BASO % 0.5 % (0-2.0); EOS % 0.9 % (0-4.5); HEMATOCRIT 35.6 % (32.4-45.2); HEMOGLOBIN 12.4 GM/dL (10.7-15.3); LYMPH % 26.4 % (8-40); MCH 29.4 pg (25.7-33.7); MCHC 34.9 g/dl (32.0-36.0); MEAN CELL VOLUME 84.3 fl (80-96); MEAN PLT VOLUME 8.9 fl (7.5-11.1); NEUT % 65.2 % (42.8-82.8); PLATELET COUNT 242 K/MM3 (134-434); RBC 4.22 M/mm3 (3.60-5.2); RDW 13.9 % (11.6-15.6); WHITE BLOOD COUNT 8.7 K/mm3 (4.0-10.0)
[2018-06-14 09:07] LABS: ALK PHOS 72 U/L (45-117); ANION GAP 8 MMOL/L (8-16); BILIRUBIN,TOTAL 0.4 mg/dL (0.2-1); BLOOD UREA NITROGEN 15 mg/dL (7-18); CALCIUM 9.2 mg/dL (8.5-10.1); CHLORIDE 107 mmol/L (98-107); CHOLESTEROL 190 mg/dL (50-200); CO2 24 mmol/L (21-32); CREATININE 0.8 mg/dL (0.55-1.3); GLUCOSE,RANDOM 114 mg/dL (74-106); HDL CHOLESTEROL 52 mg/dL (40-60); SGOT/AST 24 U/L (15-37); SGPT/ALT 23 U/L (13-61); SODIUM 138 mmol/L (136-145); TOT PROT 7.8 g/dl (6.4-8.2); TRIGLYCERIDES 196 mg/dL (0-150)
--- NOTE | 2018-06-14 09:45 | HP ---
Admitting History and Physical - Primary Care Physician PCP: Femi Sierra - Admission Chief Complaint: chest pain History of Present Illness: ER history Patient is an 83F with history of dementia, htn, hld here today complaining of chest pain. Her son reports that she had an episode of sudden onset chest pain at 12:30 today with associated leg weakness. Patient states that she has no pain or leg weakness at this time. History is limited by patient's memory loss. Son states that she did not complain of shortness of breath, fever, abdominal pain, headache. Son denies vomiting, focal weakness. No history of cardiac workups in past. Patient's PCP is Aris Sierra, no form presser. Patient's son reports this is her baseline mental status. Pt examined by me in Telemetry Son at bedside Pt has dementia, agitation, she is more confused that she is in hospital. Pt had told him that she has chest pain - she did not say anything more about it. 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 Cardiovascular: Yes: HTN, Hyperlipdemia - Smoking History Smoking history: Never smoked Have you smoked in the past 12 months: No - Alcohol/Substance Use Hx Alcohol Use: No Home Medications - Allergies Allergies/Adverse Reactions: Allergies Allergy/AdvReac Type Severity Reaction Status Date / Time No Known Allergies Allergy Verified 06/13/18 13:21 - Home Medications Home Medications: Ambulatory Orders Aspirin [ASA -] 81 mg PO DAILY 09/26/16 Donepezil HCl [Aricept -] 10 mg PO DAILY 09/26/16 Simvastatin 20 mg PO DAILY 09/26/16 Levothyroxine [Synthroid -] 75 mcg PO DAILY 02/10/17 Lisinopril [Prinivil] 5 mg PO DAILY 02/10/17 Pantoprazole Sodium [Protonix] 40 mg PO DAILY #10 tablet. 11/09/17 Review of Systems Unable to obtain ROS, reason: dementia Physical Examination Vital Signs: Vital Signs Temperature 98 F 06/14/18 09:39 Pulse Rate 68 06/14/18 09:39 Respiratory Rate 18 06/14/18 09:39 Blood Pressure 164/60 06/14/18 09:39 O2 Sat by Pulse Oximetry (%) 98 06/14/18 06:28 Constitutional: Yes: No Distress, Calm Cardiovascular: Yes: Regular Rate and Rhythm Respiratory: Yes: CTA Bilaterally Gastrointestinal: Yes: Normal Bowel Sounds, Soft. No: Tenderness Edema: No Labs: CBC, BMP 06/14/18 08:10 06/14/18 08:10 Imaging - Results Chest X-ray: Image Reviewed (clear) EKG: Image Reviewed (NSR) Problem List - Problems (1) Dementia Code(s): F03.90 - UNSPECIFIED DEMENTIA WITHOUT BEHAVIORAL DISTURBANCE (2) HTN (hypertension) Code(s): I10 - ESSENTIAL (PRIMARY) HYPERTENSION (3) Hyperlipidemia Code(s): E78.5 - HYPERLIPIDEMIA, UNSPECIFIED (4) Chest pain Code(s): R07.9 - CHEST PAIN, UNSPECIFIED Assessment/Plan PLAN Cardiac enzymes negative for ACS Haldol prn for agitation cardiac monitoring Echo Cardiology eval Stress test to be done DVT prophylaxis-- Lovenox sc
[2018-06-14] MEDS: LISINOPRIL 5 MG TABLET (FP) PO SCH (09:56)
[2018-06-14] MEDS: ASPIRIN 81 MG CHEWABLE TABLETS PO SCH (09:56)
[2018-06-14] MEDS: PANTOPRAZOLE 40 MG TABLET (FP) PO SCH (09:57)
[2018-06-14] MEDS: DONEPEZIL HCL 10 MG TABLET (FP) PO SCH (09:57)
--- NOTE | 2018-06-14 11:38 | CON.CARD ---
Consult Consult Specialty:: Cardiology Referred by:: Medicine Reason for Consultation:: chest pain - History of Present Illness Chief Complaint: chest pain History of Present Illness: 83F h/o alzheimer's dz, HTN, HLD, hypothyroidism p/w chest pain. Sudden onset last night, was at rest. midsternal, assoc with leg weakness. Currently no chest pain, palps, dizziness, dyspnea. Has had episode before a few months ago , patient cannot describe further. not very active, no exertional symptoms. poor historian, per son is being worked up for dementia. has not seen a wheel aligner, no prior cardiac testing - Alcohol/Substance Use Hx Alcohol Use: No - Smoking History Smoking history: Never smoked Have you smoked in the past 12 months: No Home Medications - Allergies Allergies/Adverse Reactions: Allergies Allergy/AdvReac Type Severity Reaction Status Date / Time No Known Allergies Allergy Verified 06/13/18 13:21 - Home Medications Home Medications: Ambulatory Orders Aspirin [ASA -] 81 mg PO DAILY 09/26/16 Donepezil HCl [Aricept -] 10 mg PO DAILY 09/26/16 Simvastatin 20 mg PO DAILY 09/26/16 Levothyroxine [Synthroid -] 75 mcg PO DAILY 02/10/17 Lisinopril [Prinivil] 5 mg PO DAILY 02/10/17 Pantoprazole Sodium [Protonix] 40 mg PO DAILY #10 tablet. 11/09/17 Family Disease History - Family Disease History Family History: Unremarkable Review of Systems - Review of Systems Constitutional: reports: No Symptoms Eyes: reports: No Symptoms HENT: reports: No Symptoms Neck: reports: No Symptoms Cardiovascular: reports: No Symptoms Respiratory: reports: No Symptoms Gastrointestinal: reports: No Symptoms Genitourinary: reports: No Symptoms Musculoskeletal: reports: No Symptoms Integumentary: reports: No Symptoms Neurological: reports: No Symptoms Endocrine: reports: No Symptoms Hematology/Lymphatic: reports: No Symptoms Psychiatric: reports: No Symptoms Vital Signs: Vital Signs Temperature 98 F 06/14/18 09:39 Pulse Rate 68 06/14/18 09:39 Respiratory Rate 18 06/14/18 09:39 Blood Pressure 164/60 06/14/18 09:39 O2 Sat by Pulse Oximetry (%) 98 06/14/18 10:00 Constitutional: Yes: Well Nourished, No Distress, Calm Eyes: Yes: Conjunctiva Clear, EOM Intact HENT: Yes: Atraumatic, Normocephalic Neck: Yes: Supple, Trachea Midline Respiratory: Yes: Regular, CTA Bilaterally Gastrointestinal: Yes: Normal Bowel Sounds, Soft Cardiovascular: Yes: Regular Rate and Rhythm JVD: No Carotid Bruit: No PMI: Non-Displaced Heart Sounds: Yes: S1, S2 Musculoskeletal: No: Back Pain Extremities: No: Cold Edema: No Peripheral Pulses WNL: Yes Peripheral Pulses: 2+ Left Doralis Pedis, 2+ Right Dorsalis Pedis Integumentary: No: Jaundice Neurological: Yes: Alert Psychiatric: No: Agitated - Other Data Labs, Other Data: CBC, BMP 06/14/18 08:10 06/14/18 08:10 INR, PTT INR 1.03 (0.83-1.09) 06/13/18 15:00 Troponin, BNP 06/13/18 06/13/18 06/13/18 15:00 19:20 21:30 Troponin I < 0.02 < 0.02 < 0.02 06/14/18 02:00 Troponin I < 0.02 Troponin, BNP 06/13/18 06/13/18 06/13/18 15:00 19:20 21:30 Troponin I < 0.02 < 0.02 < 0.02 06/14/18 02:00 Troponin I < 0.02 Assessment/Plan EKG: sinus, RBBB, no ischemic changes CXR: no acute pathology tele: sinus chest pain - poor historian, per son has had prior episodes - no prior cardiac workup - less likely ACS, stable EKG, neg trops - echo, nuclear stress ordered for further evaluation HTN - cont home meds HLD -cont statin
[2018-06-14] MEDS ORDERED: HALOPERIDOL LACTATE 5 MG/ML IM PRN (17:23)
[2018-06-14] MEDS: ATORVASTATIN CA 10 MG TABLET (FP) PO SCH (21:08)
--- NOTE | 2018-06-14 22:11 | EKG ---
Test Reason : Blood Pressure : / mmHG Vent. Rate : 086 BPM Atrial Rate : 086 BPM P-R Int : 144 ms QRS Dur : 118 ms QT Int : 384 ms P-R-T Axes : 059 049 035 degrees QTc Int : 459 ms NORMAL SINUS RHYTHM INCOMPLETE RIGHT BUNDLE BRANCH BLOCK ABNORMAL ECG WHEN COMPARED WITH ECG OF 13-JUN-2018 13:19, NO SIGNIFICANT CHANGE WAS FOUND Confirmed by MARGY SNIDER MD ([id number]) on 06/14/2018 10:10:51 PM Referred By: Confirmed By:MARGY SNIDER MD
--- NOTE | 2018-06-14 22:12 | EKG ---
Test Reason : Blood Pressure : / mmHG Vent. Rate : 081 BPM Atrial Rate : 081 BPM P-R Int : 136 ms QRS Dur : 122 ms QT Int : 390 ms P-R-T Axes : 034 059 028 degrees QTc Int : 453 ms NORMAL SINUS RHYTHM WITH SINUS ARRHYTHMIA RIGHT BUNDLE BRANCH BLOCK ABNORMAL ECG WHEN COMPARED WITH ECG OF 09-NOV-2017 15:53, NO SIGNIFICANT CHANGE WAS FOUND Confirmed by MARGY SNIDER MD ([id number]) on 06/14/2018 10:12:10 PM Referred By: Confirmed By:MARGY SNIDER MD
[2018-06-15] MEDS: LEVOTHYROXINE NA 75 MCG TABLET (FP) PO SCH (06:40)
[2018-06-15] MEDS: LISINOPRIL 5 MG TABLET (FP) PO SCH (09:15)
[2018-06-15] MEDS: ASPIRIN 81 MG CHEWABLE TABLETS PO SCH (09:16)
[2018-06-15] MEDS: DONEPEZIL HCL 10 MG TABLET (FP) PO SCH (09:16)
[2018-06-15] MEDS: PANTOPRAZOLE 40 MG TABLET (FP) PO SCH (09:18)
[2018-06-15] MEDS ORDERED: REGADENOSON 0.4 MG/5 ML PRE-FILLED SYRINGE IVPUSH ONE ×2 (09:48→10:00)
[2018-06-15] MEDS ORDERED: ENOXAPARIN NA (PORCINE) 40 MG/0.4 ML DISP.SYRIN SQ SCH (10:00)
--- NOTE | 2018-06-15 11:24 | ECHO ---
Name: KARLIREMIELI T Exam:Adult Echocardiogram Study Date: 06/15/2018 07:25 AM Age: 83 yrs Reason For Study: Chest pain Height: 62 in Weight: 134 lb BSA: 1.6 m2 MMode/2D Measurements & Calculations IVSd: 1.2 cm Ao root diam: 1.9 cm LVIDd: 3.4 cm LA dimension: 2.2 cm LVIDs: 2.6 cm LVPWd: 0.83 cm EDV(Teich): 47.9 ml LAV (MOD-bp): 21.9 ml ESV(Teich): 23.5 ml Doppler Measurements & Calculations AI P1/2t: 373.3 msec AI max haim: 421.6 cm/sec AI max P.1 mmHg AI dec slope: 330.7 cm/sec2 MR max haim: 439.0 cm/sec TR max haim: 262.3 cm/sec MR max P.4 mmHg TR max P.5 mmHg Med Peak E' Haim: 8.8 cm/sec PI Vmax: 137.1 cm/sec Lat Peak E' Haim: 7.7 cm/sec Procedure A complete two-dimensional transthoracic echocardiogram was performed (2D, M-mode, Doppler and color flow Doppler). Technically limited study. Left Ventricle The left ventricle is normal in size. Left ventricular systolic function is normal. Ejection Fraction = 60- 65%. No regional wall motion abnormalities noted. Right Ventricle The right ventricle is normal size. The right ventricular systolic function is normal. Atria The left atrial size is normal. Right atrial size is normal. Mitral Valve There is mild mitral annular calcification. There is mild mitral regurgitation. Tricuspid Valve The tricuspid valve is normal in structure and function. There is mild tricuspid regurgitation. Pulmo nary artery systolic pressure is at least 32 mmHg if RA pressure is assumed 3 mmHg. Aortic Valve The aortic valve is normal in structure and function. Mild aortic regurgitation. Pulmonic Valve The pulmonic valve is not well visualized. Great Vessels The aortic root is normal size. Pericardium/Pleura There is no pericardial effusion. Interpretation Summary Technically limited study The left ventricle is normal in size. Left ventricular systolic function is normal. No regional wall motion abnormalities noted. Ejection Fraction = 60-65%. The right ventricular systolic function is normal. The left atrial size is normal. Right atrial size is normal. There is mild mitral annular calcification. There is mild mitral regurgitation. There is mild tricuspid regurgitation. Pulmonary artery systolic pressure is at least 32 mmHg if RA pressure is assumed 3 mmHg Mild aortic regurgitation. There is no pericardial effusion. Previous study is not available for comparison Bertin Cohen MD 06/15/2018 11:22 AM
--- NOTE | 2018-06-15 11:38 | PN ---
Progress Note, Physician Chief Complaint: cp History of Present Illness: examined in holding area in cardiology. MA at bedside as pt was confused earlier. pt currently denies cp. says "i don't know" about sob, palpit, leg swelling - Current Medication List Current Medications: Active Medications Aspirin (Asa -) 81 mg PO DAILY [facility] Last Admin: 06/15/18 09:16 Dose: Not Given Atorvastatin Calcium (Lipitor -) 10 mg PO HS [facility] Last Admin: 06/14/18 21:08 Dose: 10 mg Donepezil HCl (Aricept -) 10 mg PO DAILY [facility] Last Admin: 06/15/18 09:16 Dose: 10 mg Enoxaparin Sodium (Lovenox -) 40 mg SQ DAILY [facility] Last Admin: 06/15/18 09:18 Dose: Not Given Haloperidol (Haldol Injection (Fast Acting) -) 5 mg IM Q6H PRN PRN Reason: AGITATION Last Admin: 06/14/18 21:08 Dose: 5 mg Levothyroxine Sodium (Synthroid -) 75 mcg PO DAILY@0700 [facility] Last Admin: 06/15/18 06:40 Dose: 75 mcg Lisinopril (Prinivil) 5 mg PO DAILY [facility] Last Admin: 06/15/18 09:15 Dose: 5 mg Pantoprazole Sodium (Protonix -) 40 mg PO DAILY [facility] Last Admin: 06/15/18 09:18 Dose: Not Given - Objective Vital Signs: Vital Signs Temperature 97.5 F L 06/15/18 09:46 Pulse Rate 76 06/15/18 06:00 Respiratory Rate 20 06/15/18 09:46 Blood Pressure 191/79 H 06/15/18 09:46 O2 Sat by Pulse Oximetry (%) 98 06/15/18 08:41 Constitutional: Yes: Well Nourished, No Distress, Calm Cardiovascular: Yes: Regular Rate and Rhythm, S1, S2. No: Gallop, Murmur Respiratory: Yes: CTA Bilaterally. No: Accessory Muscle Use, Rales, Wheezes Extremities: No: Cold Edema: No Neurological: Yes: Alert. No: Seizure Psychiatric: No: Agitated Labs: CBC, BMP 06/14/18 08:10 06/14/18 08:10 INR, PTT INR 1.03 (0.83-1.09) 06/13/18 15:00 Assessment/Plan EKG: sinus, RBBB, no ischemic changes CXR: no acute pathology tele: sinus, brief run PAT chest pain - poor historian, per son has had prior episodes - no prior cardiac workup - less likely ACS, stable EKG, neg trops - echo, nuclear stress in process today--will followup HTN - bp's mostly 140s-160s - cont home meds for now, monitor trend HLD -cont statin
[2018-06-15] MEDS ORDERED: AMINOPHYLLINE 250 MG/10 ML VIAL ONE (11:46)
[2018-06-15] MEDS ORDERED: AMINOPHYLLINE 250 MG/10 ML VIAL IVPUSH ONE (12:00)
--- NOTE | 2018-06-15 12:02 | PN ---
Progress Note (short form) - Note Progress Note: pt seen/ examined comfortable mi ruled out chart reviewed Vital Signs Temp 97.5 F L 06/15/18 09:46 Pulse 76 06/15/18 06:00 Resp 20 06/15/18 09:46 BP 191/79 H 06/15/18 09:46 Pulse Ox 98 06/15/18 08:41 Intake & Output 06/14/18 06/15/18 06/15/18 23:59 11:59 23:59 Intake Total 200 200 Balance 200 200 Intake: IV 0 0 S/L 0 0 Oral 200 200 Other: Voiding Method Toilet Toilet # Unmeasured Voids Void 4 3 Bowel Movement No No Active Medications Aspirin (Asa -) 81 mg PO DAILY [facility] Last Admin: 06/15/18 09:16 Dose: Not Given Atorvastatin Calcium (Lipitor -) 10 mg PO [facility] Last Admin: 06/14/18 21:08 Dose: 10 mg Donepezil HCl (Aricept -) 10 mg PO DAILY [facility] Last Admin: 06/15/18 09:16 Dose: 10 mg Enoxaparin Sodium (Lovenox -) 40 mg SQ DAILY [facility] Last Admin: 06/15/18 09:18 Dose: Not Given Haloperidol (Haldol Injection (Fast Acting) -) 5 mg IM Q6H PRN PRN Reason: AGITATION Last Admin: 06/14/18 21:08 Dose: 5 mg Levothyroxine Sodium (Synthroid -) 75 mcg PO DAILY@0700 [facility] Last Admin: 06/15/18 06:40 Dose: 75 mcg Lisinopril (Prinivil) 5 mg PO DAILY [facility] Last Admin: 06/15/18 09:15 Dose: 5 mg Pantoprazole Sodium (Protonix -) 40 mg PO DAILY [facility] Last Admin: 06/15/18 09:18 Dose: Not Given CBC, BMP 06/14/18 08:10 06/14/18 08:10 echo -- noted cm x 3 -ve Physical Examination Constitutional: Yes: No Distress, Calm, comfortable Cardiovascular: Yes: Regular Rate and Rhythm Respiratory: Yes: Clear Gastrointestinal: Yes: Normal Bowel Sounds, Soft. No: Tenderness Edema: No Imaging - Results Chest X-ray: Image Reviewed (clear) EKG: Image Reviewed (NSR) Problem List - Problems (1) Dementia Code(s): F03.90 - UNSPECIFIED DEMENTIA WITHOUT BEHAVIORAL DISTURBANCE (2) HTN (hypertension) Code(s): I10 - ESSENTIAL (PRIMARY) HYPERTENSION (3) Hyperlipidemia Code(s): E78.5 - HYPERLIPIDEMIA, UNSPECIFIED (4) Chest pain Code(s): R07.9 - CHEST PAIN, UNSPECIFIED Assessment/Plan PLAN Cardiac enzymes negative for ACS Haldol prn for agitation cardiac monitoring Echo noted Cardiology consult noted/ appreciated monitor bp Stress test today if -ve - d/c home
[2018-06-15 14:45] VITALS: TEMP 97.8
--- NOTE | 2018-06-15 17:25 | DS ---
Physical Examination Vital Signs: Vital Signs Temperature 97.8 F 06/15/18 14:10 Pulse Rate 81 06/15/18 14:10 Respiratory Rate 21 H 06/15/18 14:10 Blood Pressure 147/69 06/15/18 14:10 O2 Sat by Pulse Oximetry (%) 98 06/15/18 08:41 Findings/Remarks: see today progress note. Labs: CBC, BMP 06/14/18 08:10 06/14/18 08:10 Discharge Summary Reason For Visit: CHEST PAIN Current Active Problems Chest pain (Acute) Dementia (Acute) HTN (hypertension) (Acute) Hyperlipidemia (Acute) Hospital Course: stress test -ve discussed with son d/c home f/u in office - 2 weeks meds reviewed/ reconciled discussed with nursing staff Condition: Stable - Instructions Referrals: Krystle Lomas MD [Staff Physician] - Femi Sierra MD [Primary Care Provider] - Disposition: HOME - Home Medications Comprehensive Discharge Medication List: Ambulatory Orders Aspirin [ASA -] 81 mg PO DAILY 09/26/16 Donepezil HCl [Aricept -] 10 mg PO DAILY 09/26/16 Simvastatin 20 mg PO DAILY 09/26/16 Levothyroxine [Synthroid -] 75 mcg PO DAILY 02/10/17 Lisinopril [Prinivil] 5 mg PO DAILY 02/10/17 Pantoprazole Sodium [Protonix] 40 mg PO DAILY #10 tablet. 11/09/17
[2018-06-15 17:56] VITALS: BP 170/69; PULSE 89
== END 2018-06-15 19:13 | disposition home or self-care (01) ==
LOC: JER 13:14 → INTOOBSV 14:42 → JERBED 14:42 → J4W 18:53
PROVIDERS: ADMIT Internal Medicine; ATTEND Internal Medicine
PROC: 3E033GC Introduction of Other Therapeutic Substance into Peripheral Vein, Percutaneous Approach (ICD-10-PCS; principal; 2018-06-13)
PROC: 3E023GC Introduction of Other Therapeutic Substance into Muscle, Percutaneous Approach (ICD-10-PCS; 2018-06-13)
DX: R07.9 Chest pain, unspecified (principal); I10 Essential (primary) hypertension; E78.5 Hyperlipidemia, unspecified; E03.9 Hypothyroidism, unspecified; G30.9 Alzheimer's disease, unspecified; F02.80 Dementia in other diseases classified elsewhere, unspecified severity, without behavioral disturbance, psychotic disturbance, mood disturbance, and anxiety; Z79.82 Long term (current) use of aspirin
CPT/HCPCS: 36415; 71045-TC-FY; 78452-TC; 80053; 80061; 82550; 82553; 83721; 83735; 84443; 84484; 85025; 85610; 93005; 93010; 93017; 93306-TC; 96372; 96374; 96375; 99282-25; A9502; G0378; J2785

== ENCOUNTER 2020-06-21 12:32 | Emergency (ER) | payer OTHER ==
[2020-06-21 12:42] VITALS: BMI 27.4
[2020-06-21 15:19] LABS: EPI CELLS 4 /uL (0-25.1); HYALINE CASTS 1 /uL (0-3.1); PH,URINE 5.5 (5.0-8.0); URINE APPEARANCE CLEAR; URINE BACTERIA 7809 /uL (0-1359); URINE BILIRUBIN NEGATIVE (NEGATIVE); URINE COLOR YELLOW; URINE GLUCOSE (UA) NEGATIVE (NEGATIVE); URINE KETONE NEGATIVE (NEGATIVE); URINE LEUK ESTERASE TRACE (NEGATIVE); URINE NITRITE POSITIVE (NEGATIVE); URINE PROTEIN NEGATIVE (NEGATIVE); URINE RBC 3 /uL (0-23.9); URINE UROBILINOGEN 0.2 mg/dL (0.2-1.0); URINE WBC 52 /uL (0-25.8)
[2020-06-21 15:57] LABS: BASO % 0.5 % (0-2.0); EOS % 0.2 % (0-4.5); HEMATOCRIT 34.5 % (32.4-45.2); HEMOGLOBIN 11.5 GM/dL (10.7-15.3); LYMPH % 23.6 % (8-40); MCH 28.5 pg (25.7-33.7); MCHC 33.3 g/dl (32.0-36.0); MEAN CELL VOLUME 85.5 fl (80-96); MEAN PLT VOLUME 9.3 fl (7.5-11.1); MONO % 15.6 % (3.8-10.2); NEUT % 60.1 % (42.8-82.8); PLATELET COUNT 161 K/MM3 (134-434); RBC 4.03 M/mm3 (3.60-5.2); RDW 14.2 % (11.6-15.6); WHITE BLOOD COUNT 6.3 K/mm3 (4.0-10.0)
[2020-06-21] MEDS ORDERED: CEPHALEXIN MONOHYDRATE 500 MG CAPSULE (UD) PO ONE (16:09)
[2020-06-21 16:38] LABS: POTASSIUM 4.1 mmol/L (3.5-5.1)
[2020-06-21 16:40] LABS: ALBUMIN 3.8 g/dl (3.4-5.0); BLOOD UREA NITROGEN 10.6 mg/dL (7-18); CALCIUM 9.5 mg/dL (8.5-10.1)
[2020-06-21 16:43] LABS: CREATININE 0.8 mg/dL (0.55-1.3)
[2020-06-21 16:45] LABS: BILIRUBIN,TOTAL 0.6 mg/dL (0.2-1); TOT PROT 7.3 g/dl (6.4-8.2)
[2020-06-21 16:50] VITALS: BP 128/68; PULSE 86; TEMP 98.5
[2020-06-21] MEDS ORDERED: CEPHALEXIN MONOHYDRATE 500 MG CAPSULE (UD) ONE (16:56)
== END 2020-06-21 17:15 | disposition home or self-care (01) ==
LOC: JER 12:32
DX: R82.998 Other abnormal findings in urine (principal)
CPT/HCPCS: 36415; 71045-TC-FY; 80053; 81003; 85025; 87086; 87186; 93005; 93010; 99284-25

== ENCOUNTER 2020-07-03 10:46 | Emergency (ER) | payer OTHER ==
[2020-07-03] MEDS ORDERED: BAMLANIVIMAB 700 MG in SODIUM CHLORIDE 250 ML IVPB ONE (11:59)
[2020-07-03 12:23] VITALS: TEMP 98.8; BMI 30.2
[2020-07-03 15:39] LABS: HEMATOCRIT 35.4 % (32.4-45.2); HEMOGLOBIN 11.7 GM/dL (10.7-15.3); MCH 28.1 pg (25.7-33.7); MCHC 32.9 g/dl (32.0-36.0); MEAN CELL VOLUME 85.4 fl (80-96); MEAN PLT VOLUME 9.3 fl (7.5-11.1); PLATELET COUNT 233 K/MM3 (134-434); RBC 4.15 M/mm3 (3.60-5.2); RDW 13.9 % (11.6-15.6); WHITE BLOOD COUNT 6.9 K/mm3 (4.0-10.0)
[2020-07-03 16:00] LABS: POTASSIUM 4.2 mmol/L (3.5-5.1)
[2020-07-03 16:01] LABS: CALCIUM 9.6 mg/dL (8.5-10.1)
[2020-07-03 16:02] LABS: BLOOD UREA NITROGEN 11.7 mg/dL (7-18)
[2020-07-03 16:05] LABS: CREATININE 0.7 mg/dL (0.55-1.3)
[2020-07-03 18:12] VITALS: BP 137/75; PULSE 78
== END 2020-07-03 17:45 | disposition home or self-care (01) ==
LOC: JER 10:46
DX: U07.1 COVID-19 (principal)
CPT/HCPCS: 36415; 80048; 85027; 96374; 99284-25; M0239; Q0239

== ENCOUNTER 2022-05-01 11:53 | Inpatient (IN) | payer OTHER ==
[2022-05-01] MEDS ORDERED: SODIUM CHLORIDE 0.9% 500 ML INFUS.BAG IV ONE (14:07)
[2022-05-01 14:47] LABS: BASO % 0.7 % (0-2.0); EOS % 2.1 % (0-4.5); HEMATOCRIT 36.7 % (32.4-45.2); LYMPH % 22.9 % (8-40); MCH 28.2 pg (25.7-33.7); MCHC 32.7 g/dl (32.0-36.0); MEAN CELL VOLUME 86.2 fl (80-96); MEAN PLT VOLUME 10.3 fl (7.5-11.1); MONO % 8.7 % (3.8-10.2); NEUT % 65.6 % (42.8-82.8); PLATELET COUNT 262 10^3/uL (134-434); RBC 4.25 M/mm3 (3.60-5.2); RDW 13.6 % (11.6-15.6); WHITE BLOOD COUNT 8.6 K/mm3 (4.0-10.0)
[2022-05-01 14:50] LABS: EPI CELLS >36 /uL (0-25.1); HYALINE CASTS 10 /uL (0-3.1); URINE APPEARANCE TURBID; URINE BACTERIA >9,000 /uL (0-1359); URINE BILIRUBIN NEGATIVE (NEGATIVE); URINE COLOR YELLOW; URINE GLUCOSE (UA) NEGATIVE (NEGATIVE); URINE KETONE TRACE (NEGATIVE); URINE LEUK ESTERASE 3+ (NEGATIVE); URINE NITRITE POSITIVE (NEGATIVE); URINE PROTEIN TRACE (NEGATIVE); URINE WBC 677 /uL (0-25.8)
[2022-05-01 15:07] LABS: ALBUMIN 3.1 g/dl (3.4-5.0); BLOOD UREA NITROGEN 12.9 mg/dL (7-18); CALCIUM 9.7 mg/dL (8.5-10.1); MAGNESIUM 2.2 mg/dL (1.8-2.4)
[2022-05-01 15:10] LABS: CREATININE 0.8 mg/dL (0.55-1.3); URINE RBC 38.8 /uL (0-23.9); YEAST NO SEEN (NEGATIVE)
[2022-05-01 15:12] LABS: BILIRUBIN,TOTAL 0.8 mg/dL (0.2-1); TOT PROT 6.7 g/dl (6.4-8.2)
[2022-05-01] MEDS ORDERED: PIPERACILLIN/TAZOB 3.375 GM 3.375 GM in DEXTROSE 5%-WATER - 50 ML IVPB ONE (15:35)
[2022-05-01] MEDS ORDERED: PIPERACILLIN/TAZOB 3.375 GM 3.375 GM/50 ML BAG IVPB ONE (16:18)
[2022-05-01] MEDS: SODIUM CHLORIDE 0.45% 1,000 ML IV SCH (21:00)
[2022-05-01] MEDS ORDERED: CEFTRIAXONE 1 GM/50 ML BAG ONE (21:54)
[2022-05-01] MEDS: CEFTRIAXONE 1 GM in DEXTROSE 5%-WATER - 50 ML IVPB SCH (22:04)
[2022-05-01] MEDS: ATORVASTATIN CA 10 MG TABLET (FP) PO SCH (22:26)
[2022-05-02 05:53] VITALS: BMI 25.2
[2022-05-02] MEDS: LEVOTHYROXINE NA 75 MCG TABLET (FP) PO SCH (06:51)
[2022-05-02] MEDS: SODIUM CHLORIDE 0.45% 1,000 ML IV SCH ×2 (07:02→22:00)
[2022-05-02] MEDS: CEFTRIAXONE 1 GM in DEXTROSE 5%-WATER - 50 ML IVPB SCH (10:23)
[2022-05-02] MEDS: LISINOPRIL 5 MG TABLET PO SCH (10:30)
[2022-05-02] MEDS: DONEPEZIL HCL 10 MG TABLET (FP) PO SCH (10:30)
[2022-05-02] MEDS: ENOXAPARIN NA (PORCINE) 40 MG/0.4 ML DISP.SYRIN SQ SCH (10:30)
[2022-05-02] MEDS: ASPIRIN 81 MG CHEWABLE TABLETS PO SCH (10:30)
[2022-05-02] MEDS ORDERED: ACETAMINOPHEN 1000 MG/100 ML BAG IVPB PRN (16:32)
[2022-05-02] MEDS: ATORVASTATIN CA 10 MG TABLET (FP) PO SCH (22:00)
[2022-05-03] MEDS: SODIUM CHLORIDE 0.45% 1,000 ML IV SCH ×2 (02:47→15:28)
[2022-05-03] MEDS: LEVOTHYROXINE NA 75 MCG TABLET (FP) PO SCH (06:23)
[2022-05-03 10:41] LABS: BASO % 0.7 % (0-2.0); EOS % 3.5 % (0-4.5); HEMOGLOBIN 10.4 GM/dL (10.7-15.3); LYMPH % 28.1 % (8-40); MCHC 32.6 g/dl (32.0-36.0); MEAN CELL VOLUME 85.9 fl (80-96); MEAN PLT VOLUME 10.2 fl (7.5-11.1); MONO % 9.2 % (3.8-10.2); NEUT % 58.5 % (42.8-82.8); PLATELET COUNT 202 10^3/uL (134-434); RBC 3.73 M/mm3 (3.60-5.2); RDW 13.6 % (11.6-15.6); WHITE BLOOD COUNT 6.9 K/mm3 (4.0-10.0)
[2022-05-03 11:10] LABS: BLOOD UREA NITROGEN 6.6 mg/dL (7-18)
[2022-05-03 11:14] LABS: CREATININE 0.6 mg/dL (0.55-1.3)
[2022-05-03] MEDS: ASPIRIN 81 MG CHEWABLE TABLETS PO SCH (11:30)
[2022-05-03] MEDS: CEFTRIAXONE 1 GM in DEXTROSE 5%-WATER - 50 ML IVPB SCH (11:30)
[2022-05-03] MEDS: ENOXAPARIN NA (PORCINE) 40 MG/0.4 ML DISP.SYRIN SQ SCH (11:30)
[2022-05-03] MEDS: LISINOPRIL 5 MG TABLET PO SCH (11:30)
[2022-05-03] MEDS: DONEPEZIL HCL 10 MG TABLET (FP) PO SCH (11:30)
[2022-05-03] MEDS: ATORVASTATIN CA 10 MG TABLET (FP) PO SCH (22:46)
[2022-05-04] MEDS: SODIUM CHLORIDE 0.45% 1,000 ML IV SCH ×2 (05:40→21:33)
[2022-05-04] MEDS: LEVOTHYROXINE NA 75 MCG TABLET (FP) PO SCH (07:11)
[2022-05-04] MEDS ORDERED: cefTRIAXone SODIUM 1 GM VIAL ONE (09:25)
[2022-05-04] MEDS: ASPIRIN 81 MG CHEWABLE TABLETS PO SCH (10:15)
[2022-05-04] MEDS: ENOXAPARIN NA (PORCINE) 40 MG/0.4 ML DISP.SYRIN SQ SCH (10:15)
[2022-05-04] MEDS: CEFTRIAXONE 1 GM in DEXTROSE 5%-WATER - 50 ML IVPB SCH (10:15)
[2022-05-04] MEDS: DONEPEZIL HCL 10 MG TABLET (FP) PO SCH (10:15)
[2022-05-04] MEDS: LISINOPRIL 5 MG TABLET PO SCH (10:16)
[2022-05-04] MEDS: ATORVASTATIN CA 10 MG TABLET (FP) PO SCH (21:34)
[2022-05-05] MEDS: LEVOTHYROXINE NA 75 MCG TABLET (FP) PO SCH (06:22)
[2022-05-05] MEDS: DONEPEZIL HCL 10 MG TABLET (FP) PO SCH (10:26)
[2022-05-05] MEDS: ASPIRIN 81 MG CHEWABLE TABLETS PO SCH (10:27)
[2022-05-05] MEDS: CEFTRIAXONE 1 GM in DEXTROSE 5%-WATER - 50 ML IVPB SCH (10:27)
[2022-05-05] MEDS: ENOXAPARIN NA (PORCINE) 40 MG/0.4 ML DISP.SYRIN SQ SCH (10:27)
[2022-05-05] MEDS: LISINOPRIL 5 MG TABLET PO SCH (10:27)
[2022-05-05 12:20] VITALS: RESP 18
[2022-05-05] MEDS: SODIUM CHLORIDE 0.45% 1,000 ML IV SCH (22:21)
[2022-05-05] MEDS: ATORVASTATIN CA 10 MG TABLET (FP) PO SCH (22:21)
[2022-05-06] MEDS: LEVOTHYROXINE NA 75 MCG TABLET (FP) PO SCH (06:10)
[2022-05-06] MEDS: ENOXAPARIN NA (PORCINE) 40 MG/0.4 ML DISP.SYRIN SQ SCH (10:43)
[2022-05-06] MEDS: CEFTRIAXONE 1 GM in DEXTROSE 5%-WATER - 50 ML IVPB SCH (10:43)
[2022-05-06] MEDS: LISINOPRIL 5 MG TABLET PO SCH (10:51)
[2022-05-06] MEDS: DONEPEZIL HCL 10 MG TABLET (FP) PO SCH (10:51)
[2022-05-06] MEDS: ASPIRIN 81 MG CHEWABLE TABLETS PO SCH (10:51)
[2022-05-06] MEDS: ATORVASTATIN CA 10 MG TABLET (FP) PO SCH (22:35)
[2022-05-07 03:47] VITALS: BP 160/58; PULSE 66
[2022-05-07] MEDS: LEVOTHYROXINE NA 75 MCG TABLET (FP) PO SCH (06:33)
[2022-05-07] MEDS: ASPIRIN 81 MG CHEWABLE TABLETS PO SCH (09:56)
[2022-05-07] MEDS: ENOXAPARIN NA (PORCINE) 40 MG/0.4 ML DISP.SYRIN SQ SCH (09:56)
[2022-05-07] MEDS: CEFTRIAXONE 1 GM in DEXTROSE 5%-WATER - 50 ML IVPB SCH (09:56)
[2022-05-07] MEDS: DONEPEZIL HCL 10 MG TABLET (FP) PO SCH (09:57)
[2022-05-07] MEDS: LISINOPRIL 5 MG TABLET PO SCH (09:57)
[2022-05-07 14:20] VITALS: TEMP 98
== END 2022-05-07 18:05 | DRG 689 ==
LOC: JER 11:53 → JERBED 16:50 → J6S 05-02 05:16
PROVIDERS: ADMIT Internal Medicine; ATTEND Internal Medicine
DX: N39.0 Urinary tract infection, site not specified (principal); G93.41 Metabolic encephalopathy; B96.20 Unspecified Escherichia coli [E. coli] as the cause of diseases classified elsewhere; I10 Essential (primary) hypertension; E78.5 Hyperlipidemia, unspecified; E03.9 Hypothyroidism, unspecified; F03.90 Unspecified dementia, unspecified severity, without behavioral disturbance, psychotic disturbance, mood disturbance, and anxiety; I45.10 Unspecified right bundle-branch block; R00.1 Bradycardia, unspecified; Z74.01 Bed confinement status
CPT/HCPCS: 0241U-QW; 36415; 70450-TC; 71046-TC-FY; 72170-TC-FY; 73030-TC-RT-FY; 73521-TC-FY; 80048; 80053; 81003; 82607; 82962; 83735; 84439; 84443; 84484; 85025; 87086; 87186; 93005; 93010; 97116-GP; 97162-GP; 99285-25

== ENCOUNTER 2022-08-07 20:53 | Inpatient (IN) | payer OTHER ==
[2022-08-07 21:58] LABS: VENOUS BASE EXCESS -0.7 mmol/L (-2-2); VENOUS O2 SATURATION 45.6 % (70-80); VENOUS PCO2 50.3 mmHg (38-52); VENOUS PH 7.329 (7.310-7.410)
[2022-08-07 22:05] LABS: INR 1.17 (0.83-1.09); PROTHROMBIN TIME (PATIENT) 13.5 SEC (9.7-13.0)
[2022-08-07 22:07] LABS: ACTIVATED PTT 41.1 SECONDS (25.2-36.5)
[2022-08-07 22:08] LABS: BASO % 0.3 % (0-2.0); EOS % 2.1 % (0-4.5); HEMATOCRIT 37.2 % (32.4-45.2); HEMOGLOBIN 12.4 GM/dL (10.7-15.3); LYMPH % 15.8 % (8-40); MCHC 33.4 g/dl (32.0-36.0); MEAN CELL VOLUME 86.7 fl (80-96); MEAN PLT VOLUME 10.7 fl (7.5-11.1); MONO % 5.6 % (3.8-10.2); NEUT % 76.2 % (42.8-82.8); PLATELET COUNT 210 10^3/uL (134-434); RBC 4.29 M/mm3 (3.60-5.2); RDW 14.7 % (11.6-15.6); WHITE BLOOD COUNT 15.5 K/mm3 (4.0-10.0)
[2022-08-07 22:48] LABS: EPI CELLS >36 /uL (0-25.1); HYALINE CASTS 5 /uL (0-3.1); URINE APPEARANCE CLOUDY; URINE BACTERIA 6354 /uL (0-1359); URINE BILIRUBIN NEGATIVE (NEGATIVE); URINE COLOR DK YELLOW; URINE GLUCOSE (UA) NEGATIVE (NEGATIVE); URINE KETONE TRACE (NEGATIVE); URINE LEUK ESTERASE 1+ (NEGATIVE); URINE NITRITE NEGATIVE (NEGATIVE); URINE PROTEIN NEGATIVE (NEGATIVE); URINE WBC 79 /uL (0-25.8)
[2022-08-07] MEDS ORDERED: SODIUM CHLORIDE 0.9% 500 ML INFUS.BAG IV ONE (22:49)
[2022-08-07 22:58] LABS: ALBUMIN 3.6 g/dl (3.4-5.0); CALCIUM 10.8 mg/dL (8.5-10.1)
[2022-08-07 23:00] LABS: MAGNESIUM 2.8 mg/dL (1.8-2.4)
[2022-08-07 23:01] LABS: CREATININE 1.5 mg/dL (0.55-1.3)
[2022-08-07 23:03] LABS: BILIRUBIN,TOTAL 1.2 mg/dL (0.2-1); TOT PROT 7.8 g/dl (6.4-8.2)
[2022-08-07 23:05] LABS: LACTIC ACID 2.3 mmol/L (0.4-2.0)
[2022-08-07 23:30] LABS: YEAST NONE SEEN (NEGATIVE)
[2022-08-08] MEDS ORDERED: PIPERACILLIN/TAZOB 4.5 GM 4.5 GM in DEXTROSE 5%-WATER 100 ML IVPB ONE (01:12)
[2022-08-08] MEDS ORDERED: LACTATED RINGERS SOLUTION 1000 ML INFUS.BAG IV ONE ×3 (01:15→05:40)
[2022-08-08] MEDS: DOPAMINE 400 MG/D5W - 400,000 MCG/250 ML INFUS.BAG IVPB SCH ×2 (01:20→07:47)
[2022-08-08 01:31] LABS: LACTIC ACID 3.5 mmol/L (0.4-2.0)
[2022-08-08 07:52] LABS: HEMATOCRIT 31.5 % (32.4-45.2); HEMOGLOBIN 10.6 GM/dL (10.7-15.3); MCH 28.9 pg (25.7-33.7); MCHC 33.6 g/dl (32.0-36.0); MEAN CELL VOLUME 85.9 fl (80-96); MEAN PLT VOLUME 11.2 fl (7.5-11.1); PLATELET COUNT 183 10^3/uL (134-434); RBC 3.67 M/mm3 (3.60-5.2); RDW 14.6 % (11.6-15.6); WHITE BLOOD COUNT 9.8 K/mm3 (4.0-10.0)
[2022-08-08 08:11] LABS: BLOOD UREA NITROGEN 47.7 mg/dL (7-18)
[2022-08-08 08:13] LABS: CALCIUM 9.7 mg/dL (8.5-10.1)
[2022-08-08 08:14] LABS: MAGNESIUM 2.3 mg/dL (1.8-2.4)
[2022-08-08 08:15] LABS: CREATININE 1.1 mg/dL (0.55-1.3)
[2022-08-08] MEDS: LACTATED RINGERS SOLUTION 1,000 ML/1,000 ML INFUS.BAG IV SCH ×2 (09:02→21:28)
[2022-08-08] MEDS: HEPARIN NA (PORCINE) 5,000 UNITS/ML 1ML VIAL SQ SCH ×2 (09:02→21:30)
[2022-08-08] MEDS: MUPIROCIN 2% TOPICAL OINTMENT FOR DECOLONIZATION NS SCH ×2 (09:02→21:28)
[2022-08-08] MEDS ORDERED: KCL 10 MEQ IVPB 10 MEQ/100 ML INFUS.BAG IVPB SCH (09:15)
[2022-08-08] MEDS ORDERED: LEVOTHYROXINE SODIUM 100 MCG 5 ML VIAL IVPUSH SCH ×4 (10:00→10:03)
[2022-08-08] MEDS: LEVOTHYROXINE SODIUM 100 MCG 5 ML VIAL IVPUSH SCH (11:39)
[2022-08-08] MEDS ORDERED: CHLORHEXIDINE GLUCONATE 4% CLEANSER FOR DECOLONIZATION TP SCH (22:00)
[2022-08-09] MEDS: DOPAMINE 400 MG/D5W - 400,000 MCG/250 ML INFUS.BAG IVPB SCH (07:32)
[2022-08-09 07:37] LABS: HEMATOCRIT 31.1 % (32.4-45.2); HEMOGLOBIN 10.3 GM/dL (10.7-15.3); MCH 28.5 pg (25.7-33.7); MCHC 33.1 g/dl (32.0-36.0); MEAN CELL VOLUME 86.1 fl (80-96); MEAN PLT VOLUME 11.1 fl (7.5-11.1); PLATELET COUNT 185 10^3/uL (134-434); RBC 3.61 M/mm3 (3.60-5.2); RDW 14.3 % (11.6-15.6); WHITE BLOOD COUNT 8.5 K/mm3 (4.0-10.0)
[2022-08-09 08:04] LABS: BLOOD UREA NITROGEN 25.3 mg/dL (7-18); CALCIUM 10.2 mg/dL (8.5-10.1); MAGNESIUM 2.5 mg/dL (1.8-2.4)
[2022-08-09 08:07] LABS: CREATININE 0.7 mg/dL (0.55-1.3); PHOSPHOROUS 2.4 mg/dL (2.5-4.9)
[2022-08-09 08:09] LABS: BILIRUBIN,TOTAL 0.6 mg/dL (0.2-1); TOT PROT 6.3 g/dl (6.4-8.2)
[2022-08-09 08:18] LABS: ALBUMIN 2.9 g/dl (3.4-5.0)
[2022-08-09] MEDS ORDERED: ATROPINE SULFATE 1 MG/10 ML DISP.SYRIN ONE (09:22)
[2022-08-09] MEDS ORDERED: ACETAMINOPHEN 500 MG TABLET (FP) PO PRN (09:28)
[2022-08-09] MEDS ORDERED: D5-1/2NS+20 MEQ KCL - 20 MEQ/1,000 ML INFUS.BAG IV SCH (09:30)
[2022-08-09] MEDS: HEPARIN NA (PORCINE) 5,000 UNITS/ML 1ML VIAL SQ SCH (09:57)
[2022-08-09] MEDS: MUPIROCIN 2% TOPICAL OINTMENT FOR DECOLONIZATION NS SCH (09:57)
[2022-08-09] MEDS: LACTATED RINGERS SOLUTION 1,000 ML/1,000 ML INFUS.BAG IV SCH (09:57)
[2022-08-09] MEDS ORDERED: NYSTATIN 100,000 UNIT/GM TOPICAL CREAM 15 GM TUBE TP SCH (10:00)
[2022-08-09] MEDS: LEVOTHYROXINE SODIUM 100 MCG 5 ML VIAL IVPUSH SCH (11:16)
[2022-08-09 12:09] VITALS: BMI 21.9
[2022-08-09] MEDS ORDERED: hydrALAZINE HCL 20 MG/ML VIAL IVPUSH ONE ×2 (13:50→16:31)
[2022-08-09 21:30] VITALS: TEMP 98.7
[2022-08-09 22:38] VITALS: BP 162/58; PULSE 62; RESP 13
== END 2022-08-09 22:15 | disposition short-term general hospital (02) | DRG 310 ==
LOC: JER 20:53 → JERBED 22:43 → JICU 23:36
PROVIDERS: ADMIT Internal Medicine; ATTEND Internal Medicine
DX: I44.2 Atrioventricular block, complete (principal); E03.9 Hypothyroidism, unspecified; E78.00 Pure hypercholesterolemia, unspecified; I10 Essential (primary) hypertension; G30.9 Alzheimer's disease, unspecified; F02.80 Dementia in other diseases classified elsewhere, unspecified severity, without behavioral disturbance, psychotic disturbance, mood disturbance, and anxiety; I49.8 Other specified cardiac arrhythmias; R41.82 Altered mental status, unspecified
CPT/HCPCS: 0241U-QW; 36415; 70450-TC; 71045-TC-FY; 80048; 80053; 81003; 82308; 82550; 82553; 82803; 83605; 83735; 84100; 84439; 84443; 84484; 85025; 85027; 85610; 85730; 86850; 86900; 86901; 87040; 87086; 87186; 93005; 93010; 93306-TC; 99285-25; J1644